=== PATIENT | female | born 1960 | race Caucasian/White ===

== ENCOUNTER → 2018-01-05 | Outpatient (CLI) | payer BC ==
[~2018-01-05] MED LIST: ASPI81EC; ASPI81EC PO; CYCL10 PO; HYDACE5; HYDACE5 PO; PROM25; WARF5; [UNRECOGNIZED DRUG - OTHER]
== END | disposition home or self-care (01) ==
LOC: LAB EV 19:15 → LAB SHORT 19:15
DX: L08.9 Local infection of the skin and subcutaneous tissue, unspecified (principal)
CPT/HCPCS: 87070; 87075; 87205

== ENCOUNTER → 2018-01-30 | Outpatient (CLI) | payer BC | END | disposition home or self-care (01) | LOC: LAB SHORT 18:34 → LAB EV 18:34 | DX: L98.9 Disorder of the skin and subcutaneous tissue, unspecified (principal) | CPT/HCPCS: 87070; 87075; 87205 ==

== ENCOUNTER 2019-03-28 12:13 | Day surgery (SDC) | payer OTHER ==
[~2019-03-28] VITALS: Ht 167.6 cm; Wt 129.1 kg
[~2019-03-28 12:13] MED LIST changes: +FURO40 PO; +Fish Oil 10001000 MG PO; +K-Dur20 MEQ PO; +MULTI VITAMIN1 EACH PO; +PROP60 PO; +Pepto-Bismol262 MG PO; +Zantac150 MG PO
== END 2019-03-28 14:53 | disposition home or self-care (01) ==
LOC: ORSCSDS 12:13
PROVIDERS: Internal Medicine Gastroenterology
PROC: 0DJD8ZZ Inspection of Lower Intestinal Tract, Via Natural or Artificial Opening Endoscopic (ICD-10-PCS; principal; 2019-03-28 13:45)
PROC: 0DB68ZX Excision of Stomach, Via Natural or Artificial Opening Endoscopic, Diagnostic (ICD-10-PCS; principal; 2019-03-28 13:45)
PROC: 0DB98ZX Excision of Duodenum, Via Natural or Artificial Opening Endoscopic, Diagnostic (ICD-10-PCS; principal; 2019-03-28 13:45)
DX: K21.9 Gastro-esophageal reflux disease without esophagitis (principal); K29.80 Duodenitis without bleeding; R10.84 Generalized abdominal pain; K57.30 Diverticulosis of large intestine without perforation or abscess without bleeding; Z87.891 Personal history of nicotine dependence; E66.01 Morbid (severe) obesity due to excess calories; Z68.42 Body mass index [BMI] 45.0-49.9, adult; Z79.899 Other long term (current) drug therapy; Z79.82 Long term (current) use of aspirin
CPT/HCPCS: 87081; 88305; 88312; J2704; J7120

== ENCOUNTER → 2025-07-18 | Outpatient (CLI) | payer BC | LOC: LAB SHORT 09:25 → LAB 09:25 | DX: L57.0 Actinic keratosis (principal) | CPT/HCPCS: 88305 ==